=== PATIENT | male | born 1975 | race Caucasian/White ===

== ENCOUNTER 2021-09-22 12:27 | Emergency (ER) | payer BC ==
[~2021-09-22] VITALS: Ht 185.4 cm; Wt 90.0 kg
[2021-09-22] MEDS ORDERED: lisinopril 10 MG tablet PO ONE (12:45)
[2021-09-22] MEDS ORDERED: cloNIDine 0.1 mg tablet PO ONE ×2 (12:45→14:35)
--- NOTE | 2021-09-22 14:28 | NUR ---
NOTIFIED CLIVE HERNANDEZ IF HE CAN TAKE CARE OF THE PT ANESTHESIA DR ACCIDENTLY SIGN UP FOR THE PT BUT HE IS STILL WAITING FOR MD. PER CLIVE HERNANDEZ HE HAS TAKEN CARE OF PT BEFORE AND HE WILL SIGN UP AND ASSESS THE PT.
[2021-09-22 14:57] LABS: BASOPHILS % (AUTO) 0.4 % (0-1); EOSINOPHILS # (AUTO) 0.2 X10'3 (0-0.9); EOSINOPHILS % (AUTO) 4.4 % (0-6); HEMATOCRIT 41.8 % (42.0-52.0); HEMOGLOBIN 14.1 g/dl (14.0-17.9); LYMPHOCYTES # (AUTO) 1.2 X10'3 (1.1-4.8); LYMPHOCYTES % (AUTO) 24.2 % (21-51); MEAN CORPUSCULAR HEMOGLOBIN 28.8 PG (27.0-31.0); MEAN CORPUSCULAR HGB CONC 33.8 g/dL (33.0-36.5); MEAN CORPUSCULAR VOLUME 85.3 FL (78-98); MEAN PLATELET VOLUME 7.9 FL (7.4-10.4); MONOCYTES # (AUTO) 0.4 X10'3 (0-0.9); MONOCYTES % (AUTO) 8.7 % (2-12); NEUTROPHILS # (AUTO) 3.2 X10'3 (1.8-7.7); NEUTROPHILS % (AUTO) 62.3 % (42-75); PLATELET COUNT 239 X10'3 (140-440); RED CELL DISTRIBUTION WIDTH 12.3 % (11.5-14.5); WHITE BLOOD COUNT 5.1 X10'3 (4.5-11.0)
[2021-09-22 15:12] LABS: ALANINE AMINOTRANSFERASE 27 U/L (12-78); ALBUMIN 4.2 G/DL (3.4-5.0); ALBUMIN/GLOBULIN RATIO 1.3 (1.1-1.5); ALKALINE PHOSPHATASE 38 IU/L (46-116); ANION GAP 6 (8-16); ASPARTATE AMINO TRANSFERASE 15 U/L (10-37); BILIRUBIN,TOTAL 0.5 MG/DL (0.1-1.0); BLOOD UREA NITROGEN 13 MG/DL (7-18); BUN/CREATININE RATIO 13.8 (5.4-32.0); CHLORIDE 104 MMOL/L (99-107); CREATININE 0.94 MG/DL (0.60-1.10); GLUCOSE 87 MG/DL (70-104); POTASSIUM 3.6 MMOL/L (3.5-5.1); SODIUM 140 MMOL/L (135-145); TOTAL CARBON DIOXIDE 29.8 MMOL/L (24-32); TOTAL PROTEIN 7.5 G/DL (6.4-8.2); eGFR 86 ML/MIN
[2021-09-22] MEDS ORDERED: LISI40TA13 PO (15:59)
--- NOTE | 2021-09-22 16:21 | NUR ---
SPOKE TO CLIVE HERNANDEZ AND INFORMED THAT PT BP WAS 177/101 . PER PA HE IS AWARE AND PT IS OKAY TO BE D/C.
[2021-09-22 16:26] VITALS: BP 164/116
== END 2021-09-22 16:29 | disposition home or self-care (01) ==
LOC: ER 12:27
DX: I10 Essential (primary) hypertension (principal); Z79.899 Other long term (current) drug therapy
CPT/HCPCS: 36415; 71045; 80053; 85025; 93005; 99285